=== PATIENT | male | born 1970 | race American Indian/Alaskan Native ===

== ENCOUNTER 2017-08-17 17:39 | Emergency (ER) | payer BC ==
[2017-08-17] MEDS ORDERED: ZOFRAN IV ONE (19:53)
--- NOTE | 2017-08-17 19:54 | Emergency Department Report ---
History of Present Illness - General Chief Complaint: Pain General Stated Complaint: ABD PAIN Time Seen by Provider: 08/17/17 19:26 Source: patient, EMS Mode of arrival: Stretcher Limitations: No Limitations - Related Data Previous Rx's Medication Instructions Recorded Last Taken Type Blood Sugar Diagnostic, Drum 1 each MC BID #1 strip 04/16/17 Unknown Rx [Accu-Chek Compact Plus Strips] Insulin Aspart [NovoLOG Flexpen] 1 dose SQ AC #1 pen 04/16/17 Unknown Rx Insulin Detemir [Levemir] 10 units SUB-Q Q12H #100 units 04/16/17 Unknown Rx Lancets 1 each MC BID 30 Days 04/16/17 Unknown Rx Syringe and Needle,Insulin,1Ml 1 each MC BID #60 disp.syrin 04/16/17 Unknown Rx [Insulin Syringe/Needle 1 ML] oxyCODONE /ACETAMINOPHEN [Percocet 1 tab PO Q6H PRN #30 tablet 04/16/17 Unknown Rx 5/325 mg] Allergies Allergy/AdvReac Type Severity Reaction Status Date / Time pineapple Allergy Itching Verified 08/17/17 18:39 ED Review of Systems ROS: Stated complaint: ABD PAIN Other details as noted in HPI ED Past Medical Hx - Past Medical History Previous Medical History?: Yes Hx Congestive Heart Failure: No Hx Diabetes: Yes Hx Asthma: No Hx COPD: No Additional medical history: Hernia - Surgical History Past Surgical History?: Yes Additional Surgical History: 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 - Social History Smoking Status: Current Every Day Smoker Substance Use Type: None - Medications Home Medications: Home Medications Medication Instructions Recorded Confirmed Last Taken Type Blood Sugar Diagnostic, Drum 1 each MC BID #1 strip 04/16/17 Unknown Rx [Accu-Chek Compact Plus Strips] Insulin Aspart [NovoLOG Flexpen] 1 dose SQ AC #1 pen 04/16/17 Unknown Rx Insulin Detemir [Levemir] 10 units SUB-Q Q12H #100 units 04/16/17 Unknown Rx Lancets 1 each MC BID 30 Days 04/16/17 Unknown Rx Syringe and Needle,Insulin,1Ml 1 each MC BID #60 disp.syrin 04/16/17 Unknown Rx [Insulin Syringe/Needle 1 ML] oxyCODONE /ACETAMINOPHEN [Percocet 1 tab PO Q6H PRN #30 tablet 04/16/17 Unknown Rx 5/325 mg] ED Physical Exam - General Limitations: No Limitations ED Course Vital Signs 08/17/17 08/17/17 18:34 18:39 Temperature 98.7 F 98.7 F Pulse Rate 62 62 Respiratory 16 16 Rate Blood Pressure 137/74 Blood Pressure 137/74 [Right] O2 Sat by Pulse 98 100 Oximetry Critical care attestation.: If time is entered above; I have spent that time in minutes in the direct care of this critically ill patient, excluding procedure time. ED Disposition Condition: Stable Referrals: PRIMARY CARE, [Primary Care Provider] - 3-5 Days
[2017-08-17] MEDS ORDERED: SUBLIMAZE IV ONE (20:00)
--- NOTE | 2017-08-17 20:30 | Emergency Department Report ---
ED Abdominal Pain HPI - General Chief Complaint: Pain General Stated Complaint: ABD PAIN Time Seen by Provider: 08/17/17 19:26 Source: patient, EMS Mode of arrival: Stretcher Limitations: No Limitations - History of Present Illness Initial Comments: 47-year-old male with past medical history of diabetes mellitus and hypertension, as is here with complaints of pain in his right inguinal region. He was diagnosed with right inguinal hernia in April of this year. Certainly was unable to be done at that time because he had uncontrolled diabetes mellitus. He was lifting some heavy objects at work today and developed right inguinal pain. There is associated nausea and vomiting, no diarrhea, no fever. MD Complaint: abdominal pain (right inguinal region) -: Gradual Location: RLQ Radiation: none Migration to: periumbilical Severity: moderate Severity scale (0 -10): 6 Quality: stabbing, sharp Consistency: intermittent Improves With: nothing Worsens With: movement Context: other (patient was lifting heavy object at work today. These actions triggered his right inguinal pain) Associated Symptoms: nausea, vomiting. denies: diarrhea, chills, constipation, dysuria, hematemesis, hematochezia, melena, hematuria, anorexia, syncope - Related Data Previous Rx's Medication Instructions Recorded Last Taken Type Blood Sugar Diagnostic, Drum 1 each MC BID #1 strip 04/16/17 Unknown Rx [Accu-Chek Compact Plus Strips] Insulin Aspart [NovoLOG Flexpen] 1 dose SQ AC #1 pen 04/16/17 Unknown Rx Insulin Detemir [Levemir] 10 units SUB-Q Q12H #100 units 04/16/17 Unknown Rx Lancets 1 each MC BID 30 Days 04/16/17 Unknown Rx Syringe and Needle,Insulin,1Ml 1 each MC BID #60 disp.syrin 04/16/17 Unknown Rx [Insulin Syringe/Needle 1 ML] oxyCODONE /ACETAMINOPHEN [Percocet 1 tab PO Q6H PRN #30 tablet 04/16/17 Unknown Rx 5/325 mg] Hyoscyamine Subl [Levsin Sl 0.125 0.25 mg SL Q6HR PRN #30 tab 08/18/17 Unknown Rx TAB] Ibuprofen [Motrin 800 MG tab] 800 mg PO Q8HR PRN #30 tablet 08/18/17 Unknown Rx Ondansetron [Zofran TAB] 8 mg PO Q8HR PRN #20 tablet 08/18/17 Unknown Rx Allergies Allergy/AdvReac Type Severity Reaction Status Date / Time pineapple Allergy Itching Verified 08/17/17 18:39 ED Review of Systems ROS: Stated complaint: ABD PAIN Other details as noted in HPI Comment: All other systems reviewed and negative Constitutional: weakness. denies: chills, diaphoresis, fever, malaise Eyes: denies: eye pain, eye discharge, vision change ENT: denies: throat pain, dental pain, hearing loss, epistaxis Respiratory: shortness of breath. denies: cough, orthopnea, SOB with exertion, SOB at rest Cardiovascular: denies: chest pain, palpitations, dyspnea on exertion, orthopnea , edema, syncope, paroxysmal nocturnal dyspnea Endocrine: see HPI Gastrointestinal: abdominal pain (right inguinal region), nausea, vomiting, constipation. denies: diarrhea, hematemesis Genitourinary: denies: urgency, dysuria, frequency, hematuria, discharge Musculoskeletal: denies: back pain, joint swelling, arthralgia Skin: denies: rash, change in color, change in hair/nails, pruritus Neurological: weakness. 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 - Social History Smoking Status: Current Every Day Smoker Substance Use Type: None - Medications Home Medications: Home Medications Medication Instructions Recorded Confirmed Last Taken Type Blood Sugar Diagnostic, Drum 1 each MC BID #1 strip 04/16/17 Unknown Rx [Accu-Chek Compact Plus Strips] Insulin Aspart [NovoLOG Flexpen] 1 dose SQ AC #1 pen 04/16/17 Unknown Rx Insulin Detemir [Levemir] 10 units SUB-Q Q12H #100 units 04/16/17 Unknown Rx Lancets 1 each MC BID 30 Days 04/16/17 Unknown Rx Syringe and Needle,Insulin,1Ml 1 each MC BID #60 disp.syrin 04/16/17 Unknown Rx [Insulin Syringe/Needle 1 ML] oxyCODONE /ACETAMINOPHEN [Percocet 1 tab PO Q6H PRN #30 tablet 04/16/17 Unknown Rx 5/325 mg] Hyoscyamine Subl [Levsin Sl 0.125 0.25 mg SL Q6HR PRN #30 tab 08/18/17 Unknown Rx TAB] Ibuprofen [Motrin 800 MG tab] 800 mg PO Q8HR PRN #30 tablet 08/18/17 Unknown Rx Ondansetron [Zofran TAB] 8 mg PO Q8HR PRN #20 tablet 08/18/17 Unknown Rx ED Physical Exam - General Limitations: No Limitations General appearance: alert, anxious, in distress ([id number]) - Head Head exam: Present: atraumatic, normocephalic - Eye Eye exam: Present: normal appearance, PERRL, EOMI. Absent: scleral icterus, conjunctival injection, nystagmus Pupils: Absent: normal accommodation - ENT ENT exam: Present: normal exam, mucous membranes moist. Absent: TM's normal bilaterally - Neck Neck exam: Present: normal inspection, full ROM. Absent: tenderness, meningismus, lymphadenopathy - Respiratory Respiratory exam: Present: normal lung sounds bilaterally. Absent: respiratory distress, wheezes, rales, rhonchi, chest wall tenderness, accessory muscle use, decreased breath sounds, prolonged expiratory - Cardiovascular Cardiovascular Exam: Present: regular rate, normal rhythm, normal heart sounds. Absent: bradycardia, tachycardia, systolic murmur, diastolic murmur - GI/Abdominal GI/Abdominal exam: Present: soft, distended (obese abdomen), guarding (guarding in right lower quadrant, right inguinal region), hypoactive bowel sounds. Absent: normal bowel sounds, diminished bowel sounds, hyperactive bowel sounds - Rectal Rectal exam: Present: deferred - Extremities Exam Extremities exam: Present: normal inspection, full ROM, normal capillary refill. Absent: tenderness, pedal edema, joint swelling - Back Exam Back exam: Present: normal inspection, full ROM. Absent: tenderness, CVA tenderness (R), CVA tenderness (L), muscle spasm - Neurological Exam Neurological exam: Present: alert, CN II-XII intact, normal gait, motor sensory deficit ED Course Vital Signs 08/17/17 08/17/17 08/17/17 18:34 18:39 20:35 Temperature 98.7 F 98.7 F Pulse Rate 62 62 63 Respiratory 16 16 16 Rate Blood Pressure 137/74 Blood Pressure 137/74 122/65 [Right] O2 Sat by Pulse 98 100 97 Oximetry - Reevaluation(s) Reevaluation #1: 08/18/17 01:28 Present for much better ED Medical Decision Making - Lab Data Result diagrams: 08/17/17 20:03 08/17/17 20:03 Lab Results 08/17/17 08/17/17 08/17/17 Range/Units 20:03 20:03 20:20 WBC 11.5 H (4.5-11.0) K/mm3 RBC 4.34 (3.65-5.03) M/mm3 Hgb 13.4 (11.8-15.2) gm/dl Hct 40.9 (35.5-45.6) % MCV 94 (84-94) fl MCH 31 (28-32) pg MCHC 33 (32-34) % RDW 13.2 (13.2-15.2) % Plt Count 201 (140-440) K/mm3 Lymph % (Auto) 14.8 (13.4-35.0) % Story % (Auto) 5.2 (0.0-7.3) % Eos % (Auto) 0.3 (0.0-4.3) % Baso % (Auto) 0.3 (0.0-1.8) % Lymph # 1.7 (1.2-5.4) K/mm3 Story # 0.6 (0.0-0.8) K/mm3 Eos # 0.0 (0.0-0.4) K/mm3 Baso # 0.0 (0.0-0.1) K/mm3 Seg Neutrophils % 79.4 H (40.0-70.0) % Seg Neutrophils # 9.1 H (1.8-7.7) K/mm3 Sodium 138 (137-145) mmol/L Potassium 4.1 (3.6-5.0) mmol/L Chloride 101.6 (98-107) mmol/L Carbon Dioxide 26 (22-30) mmol/L Anion Gap 15 mmol/L BUN 12 (9-20) mg/dL Creatinine 1.1 (0.8-1.5) mg/dL Estimated GFR > 60 ml/min BUN/Creatinine Ratio 11 % Glucose 152 H (75-100) mg/dL Calcium 8.9 (8.4-10.2) mg/dL Total Bilirubin 0.20 (0.1-1.2) mg/dL AST 23 (5-40) units/L ALT 37 (7-56) units/L Alkaline Phosphatase 88 (35-129) units/L Total Protein 6.5 (6.3-8.2) g/dL Albumin 3.9 (3.9-5) g/dL Albumin/Globulin Ratio 1.5 % Lipase 39 (13-60) units/L Urine Color Yellow (Yellow) Urine Turbidity Clear (Clear) Urine pH 5.0 (5.0-7.0) Ur Specific [place] 1.028 (1.003-1.030) Urine Protein <15 mg/dl (Negative) mg/dL Urine Glucose (UA) 50 (Negative) mg/dL Urine Ketones 20 (Negative) mg/dL Urine Blood Sm (Negative) Urine Nitrite Neg (Negative) Urine Bilirubin Neg (Negative) Urine Urobilinogen 2.0 (<2.0) mg/dL Ur Leukocyte Esterase Tr (Negative) Urine WBC (Auto) 7.0 H (0.0-6.0) /HPF Urine RBC (Auto) 9.0 (0.0-6.0) /HPF U Epithel Cells (Auto) 1.0 (0-13.0) /HPF Urine Mucus 1+ /HPF - Radiology Data Radiology results: report reviewed, image reviewed Critical Care Time: No Critical care attestation.: If time is entered above; I have spent that time in minutes in the direct care of this critically ill patient, excluding procedure time. ED Disposition Clinical Impression: Bilateral inguinal hernia Disposition: TO HOME OR SELFCARE Is pt being admited?: No Does the pt Need Aspirin: No Condition: Stable Instructions: Inguinal Hernia (ED) Additional Instructions: Avoid lifting heavy weights, follow with the surgeon as outpatient. Return back to the emergency room if your problem progressively gets worse Prescriptions: Hyoscyamine Subl [Levsin Sl 0.125 TAB] 0.25 mg SL Q6HR PRN #30 tab PRN Reason: Pain Ibuprofen [Motrin 800 MG tab] 800 mg PO Q8HR PRN #30 tablet PRN Reason: Pain Ondansetron [Zofran TAB] 8 mg PO Q8HR PRN #20 tablet PRN Reason: Nausea Referrals: PRIMARY CARE, [Primary Care Provider] - 3-5 Days Time of Disposition: 01:36
[2017-08-17 20:33] LABS: Basophils % (Auto) 0.3 % (0.0-1.8); Eosinophils % (Auto) 0.3 % (0.0-4.3); Hematocrit 40.9 % (35.5-45.6); Hemoglobin 13.4 gm/dl (11.8-15.2); Mean Corpuscular HGB Conc 33 % (32-34); Mean Corpuscular Hemoglobin 31 pg (28-32); Mean Corpuscular Volume 94 fl (84-94); Platelet Count 201 K/mm3 (140-440); Red Blood Count 4.34 M/mm3 (3.65-5.03); Red Cell Distribution Width 13.2 % (13.2-15.2); White Blood Count 11.5 K/mm3 (4.5-11.0)
[2017-08-17 20:41] LABS: Alanine Aminotransferase 37 units/L (7-56); Albumin 3.9 g/dL (3.9-5); Albumin/Globulin Ratio 1.5 %; Alkaline Phosphatase 88 units/L (35-129); Anion Gap 15 mmol/L; BUN/Creatinine Ratio 11; Blood Urea Nitrogen 12 mg/dL (9-20); Calcium 8.9 mg/dL (8.4-10.2); Carbon Dioxide 26 mmol/L (22-30); Chloride 101.6 mmol/L (98-107); Glucose 152 mg/dL (75-100); Lipase 39 units/L (13-60); Potassium 4.1 mmol/L (3.6-5.0); Sodium 138 mmol/L (137-145); Total Protein 6.5 g/dL (6.3-8.2)
[2017-08-17 20:56] LABS: Bilirubin,Urine NEG (Negative); Blood,Urine SM (Negative); Ketones,Urine 20 mg/dL (Negative); Leukocyte Esterase,Urine TR (Negative); Mucus,Urine 1+ /HPF; Nitrite,Urine NEG (Negative); Protein,Urine <15 mg/dL mg/dL (Negative)
--- NOTE | 2017-08-17 22:47 | Cat Scan Report ---
FINAL REPORT PROCEDURE: CT ABDOMEN PELVIS W CON TECHNIQUE: Computerized axial tomography of the abdomen and pelvis was performed after the IV injection of iodinated nonionic contrast. HISTORY: RLQ abdominal pain, hx of inguinal hernia COMPARISON: 04/15/2017 FINDINGS: Visualized lower thorax: No acute abnormality Liver: Fatty infiltration of the liver. Spleen: Normal size and attenuation. Gallbladder and biliary system: Normal. Pancreas: Normal. Adrenals: Normal. Kidneys: Stable left renal cyst, measuring up to 3 centimeters. No hydronephrosis bilaterally. GI tract: There is again visualized herniation of a short segment of proximal sigmoid colon within left inguinal hernia. No obstruction or acute inflammation. Appendix is visualized and does not appear inflamed. Lymph nodes and mesentery: Normal. Vasculature: Normal. Bladder: There is herniation of the right anterior lateral wall of the bladder into a right inguinal hernia, as seen previously. Reproductive organs: Bilateral inguinal hernias. Peritoneum: No free fluid. Musculoskeletal structures: There are degenerative disc changes of the thoracolumbar spine. Other: None. IMPRESSION: There are again visualized bilateral inguinal hernias. The right anterior lateral wall of the urinary bladder is herniated into the right inguinal hernia. There is a short segment of proximal sigmoid colon herniated into the left inguinal hernia, without obstruction or inflammation Fatty infiltration of the liver.
[2017-08-18 01:52] VITALS: BP 119/76
== END 2017-08-18 01:45 | disposition home or self-care (01) ==
LOC: ED 17:39
DX: K40.90 Unilateral inguinal hernia, without obstruction or gangrene, not specified as recurrent (principal); E11.9 Type 2 diabetes mellitus without complications; F17.200 Nicotine dependence, unspecified, uncomplicated
CPT/HCPCS: 36415; 74177; 80053; 81001; 83690; 85025; 96374; 96375; 99284; J2405; J3010; Q9967

== ENCOUNTER 2017-10-15 06:06 | Day surgery (SDC) | payer BC ==
[2017-10-15] MEDS ORDERED: NACL BACTERIOSTATIC INFILTRATI ONE (06:36)
[2017-10-15] MEDS ORDERED: VERSED IV NR (07:00)
[2017-10-15] MEDS ORDERED: NACL 0.9% 1000 ML 1,000 ML IV SCH (07:00)
[2017-10-15] MEDS ORDERED: PEPCID PO NR (07:00)
--- NOTE | 2017-10-15 07:11 | Anesthesia Day of Surgery ---
Anesthesia Day of Surgery - Day of Surgery Patient Examined: Yes Patient H&P Reviewed: Yes Patient is NPO: Yes
--- NOTE | 2017-10-15 07:11 | Anesthesia Consultation ---
Anesthesia Consult and Med Hx Date of service: 10/15/17 - Airway Anesthetic Teeth Evaluation: Good ROM Head & Neck: Adequate Mental/Hyoid Distance: Adequate Mallampati Class: Class II Intubation Access Assessment: Probably Good - Pulmonary Exam CTA: Yes - Cardiac Exam Cardiac Exam: RRR - Pre-Operative Health Status ASA Pre-Surgery Classification: ASA3 Proposed Anesthetic Plan: General - Pulmonary Hx Smoking: Yes (CURRENT 4 CIGARETTS/DAY, SINCE 1990) Hx Asthma: No COPD: No Hx Pneumonia: No - Central Nervous System Hx Psychiatric Problems: No - Endocrine Hx End Stage Renal Disease: No Hx Insulin Dependent Diabetes: Yes - Other Systems Hx Alcohol Use: Yes (OCCAS BEER) Hx Substance Use: No Hx Cancer: No
[2017-10-15] MEDS ORDERED: SUBLIMAZE ONE (07:22)
[2017-10-15] MEDS ORDERED: ZEMURON IV ONE (07:22)
[2017-10-15] MEDS ORDERED: DIPRIVAN 10 MG/ML IV ONE (07:22)
[2017-10-15] MEDS ORDERED: XYLOCAINE MPF 2% ONE (07:22)
[2017-10-15] MEDS ORDERED: PERCOCET 5/325 PO PRN (07:30)
[2017-10-15] MEDS ORDERED: MARCAINE 0.25% INFILTRATI ONE ×2 (07:51→08:13)
[2017-10-15] MEDS ORDERED: ANCEF/STERILE WATER 2 GM/20 ML IV NR (08:00)
[2017-10-15] MEDS ORDERED: ZOFRAN IV PRN (08:00)
[2017-10-15] MEDS ORDERED: NACL 0.9% IR ONE (08:13)
[2017-10-15] MEDS ORDERED: NEO SYNEPHRINE/NS Syringe(OR USE) IV ONE (08:46)
[2017-10-15] MEDS ORDERED: ePHEDrine SULFATE ONE (09:44)
[2017-10-15] MEDS ORDERED: DILAUDID ONE (09:56)
[2017-10-15] MEDS ORDERED: ROBINUL ONE (11:13)
[2017-10-15] MEDS ORDERED: NEOSTIGMINE ONE (11:13)
[2017-10-15] MEDS ORDERED: ZOFRAN ONE (11:13)
[2017-10-15] MEDS ORDERED: BREVIBLOC IV ONE (11:20)
--- NOTE | 2017-10-15 11:34 | Short Stay Summary ---
Short Stay Documentation Date of service: 10/15/17 Narrative H&P: 47-year-old male with bilateral inguinal hernias was evaluated in the office. After obtaining medical and cardiology clearance, the patient was scheduled for a laparoscopic bilateral inguinal hernia repair with mesh. He presents today for the procedure. He has no complaints. - History Principal diagnosis: bilateral inguinal hernias, reducible H&P: obtained from office - Allergies and Medications Current Medications: Allergies pineapple Allergy (Verified 10/09/17 10:43) Itching Home Medications Medication Instructions Recorded Confirmed Last Taken Type Insulin Detemir [Levemir] 20 units SUB-Q Q12H 10/15/17 10/15/17 10/14/17 10:00 History 20 UNITS Active Medications Cefazolin Sodium (Ancef/Sterile Water 2 Gm/20 Ml) 2 gm IV PREOP NR Stop: 10/15/17 16:00 Famotidine (Pepcid) 20 mg PO PREOP NR Stop: 10/15/17 23:45 Last Admin: 10/15/17 07:01 Dose: 20 mg Sodium Chloride (Nacl 0.9% 1000 Ml) 1,000 mls @ 100 mls/hr IV DIRECT DEVONTE Last Admin: 10/15/17 06:58 Dose: 100 mls/hr Midazolam HCl (Versed) 2 mg IV PREOP NR Stop: 10/15/17 23:59 Last Admin: 10/15/17 07:11 Dose: 2 mg Morphine Sulfate (Morphine) 2 mg IV Q10MIN PRN PRN Reason: Pain, Moderate (4-6) Stop: 10/15/17 15:00 Ondansetron HCl (Zofran) 4 mg IV ONCE PRN PRN Reason: Nausea And Vomiting Oxycodone/Acetaminophen (Percocet 5/325) 1 tab PO ONCE PRN PRN Reason: Pain, Moderate (4-6) - Brief post op/procedure progress note Date of procedure: 10/15/17 Pre-op diagnosis: bilateral inguinal hernias, reducible Post-op diagnosis: same Procedure: laparoscopic bilateral inguinal hernia repair with mesh Anesthesia: GETA Findings: Bilateral direct inguinal hernias Surgeon: UMU VAZQUEZ Estimated blood loss: minimal Pathology: none Condition: stable - Hospital course Hospital course: After the scheduled procedure, the patient was recovered in the PACU. After criteria was met, he was discharged home in stable condition. - Disposition Condition at discharge: Good Disposition: DC-01 TO HOME OR SELFCARE - Discharge Diagnoses (1) Bilateral inguinal hernia Status: Acute Qualifiers: Obstruction and gangrene presence: without obstruction or gangrene Recurrence: non-recurrent Qualified Code(s): K40.20 - Bilateral inguinal hernia, without obstruction or gangrene, not specified as recurrent Short Stay Discharge Plan Activity: other (no lifting more than 15 pounds for the next 4-6 weeks, do not drive if taking narcotic pain medication) Diet: diabetic Wound: open to air Additional Instructions: Call surgeon's office if you have fever greater than 100.4, pain not controlled with prescription pain medications, redness around or pus draining from incisions Follow up with: DUNIA MORENO MD [Primary Care Provider] - 7 Days UMU VAZQUEZ DO [Staff Physician] - 14 Days Prescriptions: oxyCODONE /ACETAMINOPHEN [Percocet 5/325 mg] 1 tab PO ONCE PRN #20 tablet PRN Reason: Pain, Moderate (4-6)
[2017-10-15] MEDS: MORPHINE IV PRN ×3 (11:35→11:55)
--- NOTE | 2017-10-15 11:49 | Operative Report ---
Operative Report Operative Report: Date of operation: 10/15/2017 Preoperative diagnosis: Bilateral reducible inguinal hernias Postoperative diagnosis: Same as above Procedure performed: Laparoscopic bilateral inguinal hernia repair with mesh Surgeon: Naif Girard DO Anesthesia: Gen. endotracheal anesthesia Findings: There were bilateral direct inguinal hernias Estimated blood loss: Less than 10 mL Complications: None Disposition: Stable to PACU HPI an indication: Patient is a 47-year-old male who presented to the emergency room with complaints of pain in his right groin. A CAT scan showed bilateral inguinal hernias containing bowel. The patient was evaluated in the surgery office and set up for laparoscopic bilateral inguinal hernia repair mesh. Medical and cardiology clearance were obtained prior to surgery. All risks of surgery were discussed with the patient, all questions answered, and consent was signed and placed on the chart. Procedure in detail: The patient was identified in the preoperative area, taken back to the operating room and placed on the operating table in supine position. After anesthesia was induced a De La Vega catheter was sterilely placed by the circulating nurse. Both arms were tucked at the side with the appropriate padding. The abdomen was then prepped and draped in usual sterile fashion and a timeout was performed. Local anesthetic, 0.25% Marcaine was injected into all skin incision sites. A horizontal incision was made to the left of the umbilicus using an 11 blade. Dissection was carried down through the skin and subcutaneous tissue using Bovie electrocautery until the anterior fascia was encountered. This was opened with the Bovie until muscle was visualized. The muscle was gently split in the direction of its fibers and the preperitoneal space entered. The preperitoneal space was bluntly developed with a gloved finger. Then the Spacemaker balloon was inserted into this layer and gently guided towards the pubic tubercle. Once in the correct position, the Spacemaker balloon was inflated under direct visualization using the laparoscopic camera. Once the space was dissected, the balloon was deflated and removed. A 11 mm balloon trocar was then placed into this layer and the space insufflated to 15 mmHg. 2- 5 mm trocars were then placed under direct visualization in the midline, the first 3 fingerbreadths below the umbilicus and the second 3 fingerbreadths below that. I first turned my attention to the right side. Using the laparoscopic Kittner dissectors, the lateral space was developed. I then turned my attention medially and cleared the pubic tubercle of overlying fat and tissue. The cord was identified and the surrounding fat, peritoneum, and cremasteric muscles were gently from the cord structures. The patient had a large direct hernia on this side. Once the peritoneum was completely reduced and the cord structures dissected free from surrounding tissue, I then turned my attention to the left side. Hemostasis was ensured during the entirety of the dissection. The hernia repair on the left was performed in the same manner as on the right side. There was a direct hernia defect on the left side as well. Once the dissection was complete on both sides, a large right Bard 3-D max mesh was introduced into the preperitoneal space. It was positioned appropriately and covered all potential hernia spaces. It was tacked to the pubic tubercle and to the lateral abdominal wall using the pro-tack. Then, a large left Bard 3-D max mesh was introduced into the preperitoneal space and positioned similarly to the right, ensuring that it covered all potential hernia spaces. The mesh was tacked to the pubic tubercle using the pro-tack. Hemostasis was once again ensured. The preperitoneal space was then desufflated slowly under direct visualization and the mesh was ensured to lay flat bilaterally. The trocars were then removed. The fascia of the umbilical port was closed using figure of 8, 0 Vicryl stitches. All skin incisions were closed with 4-0 Monocryl subcuticular stitches and skin glue. At the end of the case, all sponge, instrument, sharp counts were correct 2. The patient's scrotum was palpated, there were 2 testicles present. Residual scrotal air was decompressed. The De La Vega catheter was removed. The patient was awoken from anesthesia, extubated, and he was taken to PACU in stable condition.
[2017-10-15] MEDS ORDERED: TORADOL IV NR (13:00)
[2017-10-15] MEDS ORDERED: DILAUDID IV ONE (14:00)
--- NOTE | 2017-10-15 15:21 | Post Anesthesia Evaluation ---
- Post Anesthesia Evaluation Patient Participated: Yes Airway Patent: Yes Stable Respiratory Function: Yes Nausea/Vomiting: No Temp > 96.8F: Yes Pain Manageable: Yes Adequeate Hydration: Yes Anesthesia Complications: No Block Receding Appropriately: Not Applicable Patient on Ventilator: No
[2017-10-15 15:30] VITALS: BP 116/77
== END 2017-10-15 15:39 | disposition home or self-care (01) ==
LOC: OR 06:06
PROVIDERS: ATTEND Surgery
DX: K40.20 Bilateral inguinal hernia, without obstruction or gangrene, not specified as recurrent (principal); F17.210 Nicotine dependence, cigarettes, uncomplicated; M19.90 Unspecified osteoarthritis, unspecified site; E11.9 Type 2 diabetes mellitus without complications; Z79.4 Long term (current) use of insulin; Z91.018 Allergy to other foods; Z79.899 Other long term (current) drug therapy
CPT/HCPCS: 49650; 82962; C1726; C1781; J0690; J1170; J1885; J2250; J2270; J2370; J2405; J2704; J2710; J3010; J7030; J1815

== ENCOUNTER 2019-11-26 10:42 | Inpatient (IN) | payer BC, OTHER ==
[2019-11-26 12:18] LABS: Bilirubin,Urine NEG (Negative); Blood,Urine NEG (Negative); Color,Urine Yellow (Yellow); Protein,Urine <15 mg/dL mg/dL (Negative); Urobilinogen,Urine < 2.0 mg/dL (<2.0)
[2019-11-26 12:30] LABS: Basophils # (Auto) 0.1 K/mm3 (0.0-0.1); Basophils % (Auto) 0.7 % (0.0-1.8); Eosinophils % (Auto) 0.4 % (0.0-4.3); Hematocrit 46.2 % (35.5-45.6); Hemoglobin 15.8 gm/dl (11.8-15.2); Lymphocytes # (Auto) 1.1 K/mm3 (1.2-5.4); Lymphocytes % (Auto) 9.9 % (13.4-35.0); Mean Corpuscular HGB Conc 34 % (32-34); Mean Corpuscular Volume 96 fl (84-94); Monocytes # (Auto) 0.6 K/mm3 (0.0-0.8); Monocytes % (Auto) 5.4 % (0.0-7.3); Platelet Count 171 K/mm3 (140-440); Red Blood Count 4.82 M/mm3 (3.65-5.03)
[2019-11-26 12:48] LABS: BUN/Creatinine Ratio 17; Blood Urea Nitrogen 17 mg/dL (9-20); Calcium 9.6 mg/dL (8.4-10.2); Hemolysis Index 27
[2019-11-26] MEDS ORDERED: SODIUM CHLORIDE 0.9% 1000 ML 1,000 ML ONE (13:32)
[2019-11-26] MEDS ORDERED: ONDANSETRON 4 MG/2 ML INJ ONE (13:32)
[2019-11-26] MEDS ORDERED: SODIUM CHLORIDE 0.9% 1000 ML IV SOLN IV ONE (13:40)
[2019-11-26] MEDS ORDERED: ONDANSETRON 4 MG/2 ML INJ IV ONE (13:42)
--- NOTE | 2019-11-26 16:51 | Cat Scan Report ---
CT abdomen pelvis w con INDICATION / CLINICAL INFORMATION: Lower ABD Pain. TECHNIQUE: Axial CT imaging of abdomen and pelvis was obtained with IV contrast. Coronal and sagittal reformatte d imaging obtained and reviewed. All CT scans at this location are performed using CT dose reduction for ALARA by means of automated exposure control. COMPARISON: 08/17/2017 FINDINGS: CT abdomen with contrast demonstrates mild hepatic steatosis. There is focal low density lesion with peripheral enhancement in the medial segment of the left hepatic lobe adjacent to the falciform ligam ent measuring approximately 3.3 cm. I believe this was present on the prior study and is most likely a hemangioma. The remainder of the liver is unremarkable. Spleen, pancreas, kidneys, and adrenal glan ds are grossly unremarkable. Gallbladder is mildly distended but does not appear to be acutely inflam ed. No biliary dilatation. CT pelvis demonstrates several loops of small bowel in the right mid and lower abdomen with diffuse w all thickening. There is no abnormal dilatation of the small bowel, however. The proximal and mid sma ll bowel appear unremarkable. The overall appearance is nonspecific and could represent enteritis. A normal appendix is visualized. The remainder of the GI tract is normal. No pelvic mass, free fluid, o r adenopathy is noted. Urinary bladder is moderately distended. Visualized lung bases are clear. No significant osseous abnormality. IMPRESSION: 1. Abnormal loops of small bowel in the right side of the abdomen without abnormal dilatation. There is diffuse small bowel wall thickening in this region of the abdomen. The appearance is most likely r elated to enteritis, but clinical correlation is strongly recommended. 2. Hepatic steatosis. There is a benign-appearing hemangioma in the left lobe of the liver. Signer Name: Jasmyne Clements MD Signed: 11/26/2019 4:46 PM Workstation Name: [id number]
--- NOTE | 2019-11-26 17:05 | Emergency Department Report ---
ED General Adult HPI - General Chief complaint: Nausea/Vomiting/Diarrhea Stated complaint: VOMITING/HIGH GLUCOSE Time Seen by Provider: 11/26/19 14:46 Source: patient Mode of arrival: Ambulatory Limitations: No Limitations - History of Present Illness Initial comments: 49-year-old -[place] male with a known past medical history of diabetes and Arthritis presents emergency department complaining of onset of abdominal pain last night associated with several bouts of diarrhea and vomiting. States that when his blood sugar has been very elevated in the past he is developed gastroparesis symptoms and it feels like it may be similar. He reports no no fever, no hemoptysis no hematemesis no hematochezia. Reports no chest pain or palpitations but does have abdominal discomfort abdominal discomfort to his lower abdomen in the epigastric region. Quality: burning, stabbing, dull Consistency: constant Improves with: none Worsens with: none Treatments Prior to Arrival: none - Related Data Home Medications Medication Instructions Recorded Confirmed Last Taken Detemir (Nf) [Levemir (Nf)] 20 units SUB-Q Q12H 10/15/17 10/15/17 10/14/17 10:00 20 UNITS Previous Rx's Medication Instructions Recorded Last Taken Type oxyCODONE /ACETAMINOPHEN [Percocet 1 tab PO ONCE PRN #20 tablet 10/15/17 Unknown Rx 5/325 mg] Allergies Allergy/AdvReac Type Severity Reaction Status Date / Time pineapple Allergy Itching Verified 10/09/17 10:43 ED Review of Systems ROS: Stated complaint: VOMITING/HIGH GLUCOSE Other details as noted in HPI Comment: All other systems reviewed and negative ED Past Medical Hx - Past Medical History Previous Medical History?: Yes Hx Congestive Heart Failure: No Hx Diabetes: Yes (SINCE 2014) Hx Arthritis: Yes Hx Asthma: No Hx COPD: No Hx HIV: No Additional medical history: Hernia - Surgical History Past Surgical History?: Yes Additional Surgical History: 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 - Social History Smoking Status: Current Every Day Smoker Substance Use Type: None - Medications Home Medications: Home Medications Medication Instructions Recorded Confirmed Last Taken Type Detemir (Nf) [Levemir (Nf)] 20 units SUB-Q Q12H 10/15/17 10/15/17 10/14/17 10:00 History 20 UNITS oxyCODONE /ACETAMINOPHEN [Percocet 1 tab PO ONCE PRN #20 tablet 10/15/17 Unknown Rx 5/325 mg] ED Physical Exam - General Limitations: No Limitations General appearance: alert, in no apparent distress - Head Head exam: Present: atraumatic, normocephalic, normal inspection - Eye Eye exam: Present: normal appearance, PERRL, EOMI Pupils: Present: normal accommodation - ENT ENT exam: Present: normal exam, normal orophraynx, mucous membranes moist, TM's normal bilaterally, normal external ear exam (k) - Neck Neck exam: Present: normal inspection, full ROM - Respiratory Respiratory exam: Present: normal lung sounds bilaterally. Absent: respiratory distress - Cardiovascular Cardiovascular Exam: Present: regular rate, normal rhythm. Absent: systolic murmur, diastolic murmur, rubs, gallop - GI/Abdominal GI/Abdominal exam: Present: soft, tenderness (Diffuse tenderness), normal bowel sounds. Absent: guarding, rebound - Rectal Rectal exam: Present: deferred - Extremities Exam Extremities exam: Present: normal inspection - Back Exam Back exam: Present: normal inspection - Neurological Exam Neurological exam: Present: alert, oriented X3 - Psychiatric Psychiatric exam: Present: normal affect, normal mood - Skin Skin exam: Present: warm, dry, intact, normal color. Absent: rash ED Course Vital Signs 11/26/19 10:50 Temperature 97.9 F Pulse Rate 113 H Respiratory 16 Rate Blood Pressure 117/86 O2 Sat by Pulse 98 Oximetry - Consultations Consultation #2: 11/26/19 17:15 Case discussed with my attending Dr. Michelle Garg Case was reviewed plan is to admit for DKA Consultation #3: 11/26/19 17:15 Case was discussed with hospitalist Dr. Weinberg who will come evaluate the patient at bedside for admission ED Medical Decision Making - Lab Data Result diagrams: 11/26/19 11:58 11/26/19 11:58 - Radiology Data Radiology results: report reviewed [facility] [address] [place] [address] Cat Scan Report Signed Patient: MARLENA SCHROEDER MR#: [id number] : 1970 Acct:[id number] Age/Sex: 49 / M ADM Date: 11/26/19 Loc: ED Attending Dr: Ordering Physician: MINISTERIO JAY Date of Service: 11/26/19 Procedure(s): CT abdomen pelvis w con Accession Number(s): [id number] cc: MINISTERIO JAY CT abdomen pelvis w con INDICATION / CLINICAL INFORMATION: Lower ABD Pain. TECHNIQUE: Axial CT imaging of abdomen and pelvis was obtained with IV contrast. Coronal and sagittal reformatted imaging obtained and reviewed. All CT scans at this location are performed using CT d ose reduction for ALARA by means of automated exposure control. COMPARISON: 08/17/2017 FINDINGS: CT abdomen with contrast demonstrates mild hepatic steatosis. There is focal low density lesion with peripheral enhancement in the medial segment of the left hepatic lobe adjacent to the falciform ligament measuring approximately 3.3 cm. I believe this was present on the prior study and is most likely a hemangioma. The remainder of the liver is unremarkable. Spleen, pancreas, kidneys, and adrenal glands are grossly unremarkable. Gallbladder is mildly distended but does not appear to be acutely inflamed. No biliary dilatation. CT pelvis demonstrates several loops of small bowel in the right mid and lower abdomen with diffuse wall thickening. There is no abnormal dilatation of the small bowel, however. The proximal and mid small bowel appear unremarkable. The overall appearance is nonspecific and could represent enteritis. A normal appendix is visualized. The remainder of the GI tract is normal. No pelvic mass, free fluid, or adenopathy is noted. Urinary bladder is moderately distended. Visualized lung bases are clear. No significant osseous abnormality. IMPRESSION: 1. Abnormal loops of small bowel in the right side of the abdomen without abnormal dilatation. There is diffuse small bowel wall thickening in this region of the abdomen. The appearance is most likely related to enteritis, but clinical correlation is strongly recommended. 2. Hepatic steatosis. There is a benign-appearing hemangioma in the left lobe of the liver. Signer Name: Jasmyne Clements MD Signed: 11/26/2019 4:46 PM Workstation Name: [id number] Transcribed By: JR Dictated By: Jasmyne Clements MD Electronically Authenticated By: Jasmyne Clements MD Signed Date/Time: 11/26/196 DD/ 1640 TD/TT: - Medical Decision Making Mr. Schroeder is a 49-year-old -[place] male with diabetes presents to the emergency department with hypoglycemia symptoms concerning for DKA and gastroparesis. His differential diagnosis includes other metabolic causes of hypoglycemia such as HHS, worsened diabetes/compliance. Noncompliance, as for his abdominal pain differential diagnosis includes gastroenteritis, gastroparesis, ischemic bowel, perforation, obstructive process. We considered possible causes of DKA to include infection such as pancreatitis, UTI or pneumonia. Also consider iatrogenic causes idiopathic causes and substance abuse. Most likely at this time the etiology is due to medication compliance plan to treat the hyper glycemia evaluated for the potential etiologies. Critical care attestation.: If time is entered above; I have spent that time in minutes in the direct care of this critically ill patient, excluding procedure time. ED Disposition Clinical Impression: DKA (diabetic ketoacidoses), Abdominal pain, Gastroparesis Disposition: OP ADMIT IP TO THIS HOSP Is pt being admited?: Yes Does the pt Need Aspirin: No Condition: Stable Instructions: Diabetic Ketoacidosis (ED)
[2019-11-26] MEDS ORDERED: METOCLOPRAMIDE 10 MG/2 ML INJ IV STA (17:11)
[2019-11-26] MEDS ORDERED: diphenhydrAMINE 50 MG/ML VIAL IV STA (17:11)
[2019-11-26] MEDS ORDERED: ONDANSETRON 4 MG/2 ML INJ IV PRN (22:01)
[2019-11-26] MEDS ORDERED: HYDROmorphone 1 MG/1 ML INJ IV PRN (22:01)
[2019-11-26] MEDS ORDERED: MORPHINE 2 MG/1 ML INJ IV PRN (22:01)
[2019-11-26] MEDS ORDERED: ACETAMINOPHEN 325 MG TAB PO PRN (22:01)
[2019-11-26] MEDS ORDERED: INSULIN LISPRO 100 UNIT/ML SUB-Q ONE (22:04)
[2019-11-26] MEDS ORDERED: SODIUM CHLORIDE 0.9% 1000 ML 1,000 ML IV SCH (22:15)
[2019-11-27] MEDS: HEPARIN 5,000 UNIT/1 ML VIAL SUB-Q SCH ×3 (05:35→22:37)
[2019-11-27 10:10] LABS: Basophils % (Auto) 0.4 % (0.0-1.8); Eosinophils # (Auto) 0.1 K/mm3 (0.0-0.4); Eosinophils % (Auto) 1.2 % (0.0-4.3); Hematocrit 40.7 % (35.5-45.6); Lymphocytes # (Auto) 2.1 K/mm3 (1.2-5.4); Lymphocytes % (Auto) 27.6 % (13.4-35.0); Mean Corpuscular HGB Conc 34 % (32-34); Mean Corpuscular Volume 97 fl (84-94); Monocytes # (Auto) 0.6 K/mm3 (0.0-0.8); Monocytes % (Auto) 7.7 % (0.0-7.3); Platelet Count 145 K/mm3 (140-440); Red Blood Count 4.19 M/mm3 (3.65-5.03)
[2019-11-27 10:38] LABS: Alanine Aminotransferase 14 units/L (7-56); Albumin 3.6 g/dL (3.9-5); BUN/Creatinine Ratio 19; Blood Urea Nitrogen 15 mg/dL (9-20); Hemolysis Index 24
[2019-11-27] MEDS: INSULIN NPH/REGULAR 70/30 INJ SUB-Q SCH ×2 (11:33→18:00)
[2019-11-27] MEDS: INSULIN LISPRO 100 UNIT/ML SUB-Q SCH ×4 (12:02→22:37)
--- NOTE | 2019-11-27 12:19 | History and Physical Report ---
History of Present Illness Date of examination: 11/26/19 Date of admission: 11/26/19 22:01 Chief complaint: Vomiting for 1 day History of present illness: 49-year-old -[place] male with history of insulin-dependent diabetes comes in for nausea and vomiting of 1 day duration. Patient is on Levemir and Humalog but not taking it for the last 1 week. Patient has been noncompliant. Patient takes his Levemir sometimes but not the Humalog. Patient blood glucose levels have been high in the 300-400 range. No diarrhea. Vomiting 3-4 times. But doing better now. 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 Social History Smoking Status: Current Every Day Smoker Substance Use Type: None Family history HTN - Medications Home Medications: Home Medications Medication Instructions Recorded Confirmed Last Taken Type Detemir (Nf) [Levemir (Nf)] 20 units SUB-Q Q12H 10/15/17 10/15/17 10/14/17 10:00 History 20 UNITS oxyCODONE /ACETAMINOPHEN [Percocet 1 tab PO ONCE PRN #20 tablet 10/15/17 Unknown Rx 5/325 mg] Review of Systems ROS: Stated complaint: VOMITING/HIGH GLUCOSE Other details as noted in HPI Comment: All other systems reviewed and negative Medications and Allergies Allergies Allergy/AdvReac Type Severity Reaction Status Date / Time pineapple Allergy Itching Verified 10/09/17 10:43 Home Medications Medication Instructions Recorded Confirmed Last Taken Type Detemir (Nf) [Levemir (Nf)] 20 units SUB-Q Q12H 10/15/17 11/26/19 10/14/17 10:00 History 20 UNITS metFORMIN [Glucophage] 500 mg PO BID 11/26/19 11/26/19 Unknown History Active Meds: Active Medications Acetaminophen (Tylenol) 650 mg PO Q4H PRN PRN Reason: Pain MILD(1-3)/Fever >100.5/CEE Heparin Sodium (Porcine) (Heparin) 5,000 unit SUB-Q Q12HR DEVONTE Last Admin: 11/27/19 11:49 Dose: 5,000 unit Documented by: Hydromorphone HCl (Dilaudid) 0.5 mg IV Q3H PRN PRN Reason: Pain , Severe (7-10) Sodium Chloride (Nacl 0.9% 1000 Ml) 1,000 mls @ 100 mls/hr IV DIRECT DEVONTE Last Admin: 11/27/19 11:48 Dose: 100 mls/hr Documented by: Insulin Human Isoph/Insulin Regular (Humulin 70/30) 20 unit SUB-Q BIDDIAB [facility] Last Admin: 11/27/19 11:33 Dose: Not Given Documented by: Insulin Human Lispro (Humalog) 0 unit SUB-Q Q4HR [facility]; Protocol Stop: 12/03/19 23:55 Last Admin: 11/27/19 12:02 Dose: 8 unit Documented by: Morphine Sulfate (Morphine) 2 mg IV Q4H PRN PRN Reason: Pain, Moderate (4-6) Ondansetron HCl (Zofran) 4 mg IV Q8H PRN PRN Reason: Nausea And Vomiting Sodium Chloride (Sodium Chloride Flush Syringe 10 Ml) 10 ml IV BID [facility] Last Admin: 11/27/19 11:49 Dose: 10 ml Documented by: Sodium Chloride (Sodium Chloride Flush Syringe 10 Ml) 10 ml IV PRN PRN PRN Reason: LINE FLUSH Exam - Constitutional Vitals: Temp Pulse Resp BP Pulse Ox 98.5 F 91 H 18 110/73 96 11/27/19 10:49 11/27/19 10:49 11/27/19 10:49 11/27/19 10:49 11/27/19 10:49 General appearance: Present: no acute distress, well-nourished - EENT Eyes: Present: PERRL ENT: hearing intact, clear oral mucosa, other (Dry mucous membranes) - Neck Neck: Present: supple, normal ROM - Respiratory Respiratory effort: normal Respiratory: bilateral: CTA - Cardiovascular Heart rate: 80 Rhythm: regular Heart Sounds: Present: S1 & S2. Absent: rub, click - Extremities Extremities: no ischemia, pulses intact, pulses symmetrical, No edema Peripheral Pulses: within normal limits - Abdominal General gastrointestinal: Present: soft, non-tender, non-distended, normal bowel sounds Male genitourinary: Present: normal - Integumentary Integumentary: Present: clear, warm, dry - Musculoskeletal Musculoskeletal: gait normal, strength equal bilaterally - Psychiatric Psychiatric: appropriate mood/affect, intact judgment & insight - Neurologic Neurologic: CNII-XII intact, moves all extremities - Allied Health Allied health notes reviewed: nursing, case management VLAD score - Vlad Score Age > 65: (0) No Aspirin use within the Past 7 Days: (0) No 3 or more CAD Risk Factors: (0) No 2 or more Angina events in past 24 hrs: (0) No Known CAD with more than 50% Stenosis: (0) No Elevated Cardiac Markers: (0) No ST Deviation Greater than 0.5mm: (0) No VLAD Score: 0 Results - Labs CBC & Chem 7: 11/27/19 05:22 11/27/19 05:22 Labs: Laboratory Last Values WBC 7.6 K/mm3 (4.5-11.0) 11/27/19 05:22 RBC 4.19 M/mm3 (3.65-5.03) 11/27/19 05:22 Hgb 14.0 gm/dl (11.8-15.2) 11/27/19 05:22 Hct 40.7 % (35.5-45.6) 11/27/19 05:22 MCV 97 fl (84-94) H 11/27/19 05:22 MCH 33 pg (28-32) H 11/27/19 05:22 MCHC 34 % (32-34) 11/27/19 05:22 RDW 14.0 % (13.2-15.2) 11/27/19 05:22 Plt Count 145 K/mm3 (140-440) 11/27/19 05:22 Lymph % (Auto) 27.6 % (13.4-35.0) 11/27/19 05:22 [place] % (Auto) 7.7 % (0.0-7.3) H 11/27/19 05:22 Eos % (Auto) 1.2 % (0.0-4.3) 11/27/19 05:22 Baso % (Auto) 0.4 % (0.0-1.8) 11/27/19 05:22 Lymph # 2.1 K/mm3 (1.2-5.4) 11/27/19 05:22 [place] # 0.6 K/mm3 (0.0-0.8) 11/27/19 05:22 Eos # 0.1 K/mm3 (0.0-0.4) 11/27/19 05:22 Baso # 0.0 K/mm3 (0.0-0.1) 11/27/19 05:22 Seg Neutrophils % 63.1 % (40.0-70.0) 11/27/19 05:22 Seg Neutrophils # 4.8 K/mm3 (1.8-7.7) 11/27/19 05:22 VBG pH 7.306 (7.320-7.420) L 11/26/19 11:58 Sodium 135 mmol/L (137-145) L 11/27/19 05:22 Potassium 4.3 mmol/L (3.6-5.0) 11/27/19 05:22 Chloride 95.5 mmol/L (98-107) L 11/27/19 05:22 Carbon Dioxide 19 mmol/L (22-30) L 11/27/19 05:22 Anion Gap 25 mmol/L 11/27/19 05:22 BUN 15 mg/dL (9-20) 11/27/19 05:22 Creatinine 0.8 mg/dL (0.8-1.5) 11/27/19 05:22 Estimated GFR > 60 ml/min 11/27/19 05:22 BUN/Creatinine Ratio 19 % 11/27/19 05:22 Glucose 339 mg/dL (75-100) H 11/27/19 05:22 POC Glucose 414 (70-105) H 11/27/19 11:39 Hemoglobin A1c 16.7 % (4-6) H 11/26/19 22:32 Calcium 9.0 mg/dL (8.4-10.2) 11/27/19 05:22 Total Bilirubin 0.30 mg/dL (0.1-1.2) 11/27/19 05:22 AST 12 units/L (5-40) 11/27/19 05:22 ALT 14 units/L (7-56) 11/27/19 05:22 Alkaline Phosphatase 113 units/L (35-129) 11/27/19 05:22 Total Protein 6.4 g/dL (6.3-8.2) 11/27/19 05:22 Albumin 3.6 g/dL (3.9-5) L 11/27/19 05:22 Albumin/Globulin Ratio 1.3 % 11/27/19 05:22 Urine Color Yellow (Yellow) 11/26/19 11:05 Urine Turbidity Clear (Clear) 11/26/19 11:05 Urine pH 5.0 (5.0-7.0) 11/26/19 11:05 Ur Specific [place] 1.030 (1.003-1.030) 11/26/19 11:05 Urine Protein <15 mg/dl mg/dL (Negative) 11/26/19 11:05 Urine Glucose (UA) >=500 mg/dL (Negative) 11/26/19 11:05 Urine Ketones 20 mg/dL (Negative) 11/26/19 11:05 Urine Blood Neg (Negative) 11/26/19 11:05 Urine Nitrite Neg (Negative) 11/26/19 11:05 Urine Bilirubin Neg (Negative) 11/26/19 11:05 Urine Urobilinogen < 2.0 mg/dL (<2.0) 11/26/19 11:05 Ur Leukocyte Esterase Tr (Negative) 11/26/19 11:05 Urine WBC (Auto) 8.0 /HPF (0.0-6.0) H 11/26/19 11:05 Urine RBC (Auto) 4.0 /HPF (0.0-6.0) 11/26/19 11:05 U Epithel Cells (Auto) 3.0 /HPF (0-13.0) 11/26/19 11:05 Short CBC 11/26/19 11/27/19 Range/Units 11:58 05:22 WBC 11.2 H 7.6 (4.5-11.0) K/mm3 Hgb 15.8 H 14.0 (11.8-15.2) gm/dl Hct 46.2 H 40.7 (35.5-45.6) % Plt Count 171 145 (140-440) K/mm3 BMP 11/26/19 11/27/19 11:58 05:22 Sodium 134 L 135 L Potassium 5.3 H 4.3 Chloride 95.0 L 95.5 L Carbon Dioxide 18 L 19 L BUN 17 15 Creatinine 1.0 0.8 Glucose 415 H 339 H Calcium 9.6 9.0 Liver Function 11/27/19 Range/Units 05:22 Total Bilirubin 0.30 (0.1-1.2) mg/dL AST 12 (5-40) units/L ALT 14 (7-56) units/L Alkaline Phosphatase 113 (35-129) units/L Albumin 3.6 L (3.9-5) g/dL Urine 11/26/19 Range/Units 11:05 Urine Color Yellow (Yellow) Urine pH 5.0 (5.0-7.0) Ur Specific [place] 1.030 (1.003-1.030) Urine Protein <15 mg/dl (Negative) mg/dL Urine Glucose (UA) >=500 (Negative) mg/dL - Imaging and Cardiology CT scan - abdomen: report reviewed Imaging and Cardiology: CT abdomen IMPRESSION: 1. Abnormal loops of small bowel in the right side of the abdomen without abnormal dilatation. There is diffuse small bowel wall thickening in this region of the abdomen. The appearance is most likely related to enteritis, but clinical correlation is strongly recommended. 2. Hepatic steatosis. There is a benign-appearing hemangioma in the left lobe of the liver. Assessment and Plan Advance Directives: Yes (Full code) VTE prophylaxis?: Chemical Plan of care discussed with patient/family: Yes - Patient Problems (1) Type 2 diabetes mellitus with hyperosmolar nonketotic hyperglycemia Current Visit: No Status: Acute Plan to address problem: Patient is very noncompliant Hemoglobin A1c 16.7 Initial blood glucose was 415 went down to 258 and patient was symptomatically better IV insulin was not initiated Patient was not vomiting for the last 6 hours Downgrade the patient to medical floor with frequent Accu-Cheks every 4 hours and moderate dose sliding scale protocol Patient is unable to take Levemir and Humalog 4 times a day Patient switched to NovoLog Mix 70/30 15 units twice a day and counseled about it patient is agreeable. patient follows with Dr. Odalys Silva. No DKA Anion gap is 26 Minimal ketones in the urine (2) Metabolic acidosis Current Visit: Yes Status: Acute Plan to address problem: Mild Should correct with IV fluids and every 4 insulin-regular per moderate sliding scale Patient is asymptomatic now hence downgraded to medical floor (3) Hyponatremia Current Visit: Yes Status: Acute Plan to address problem: Should correct with correction of blood glucose (4) Arthritis Current Visit: Yes Status: Chronic Plan to address problem: Tylenol 650 q. 6 as needed (5) Urinary tract infection Current Visit: Yes Status: Acute Qualifiers: Urinary tract infection type: acute cystitis Plan to address problem: On IV Rocephin 1 g IV piggyback every 24 (6) DVT prophylaxis Current Visit: Yes Status: Acute Plan to address problem: On heparin and GI prophylaxis
--- NOTE | 2019-11-27 12:32 | Progress Note ---
Assessment and Plan - Patient Problems (1) Type 2 diabetes mellitus with hyperosmolar nonketotic hyperglycemia Current Visit: No Status: Acute Plan to address problem: Patient is very noncompliant Hemoglobin A1c 16.7 Initial blood glucose was 415 went down to 258 and patient was symptomatically better IV insulin was not initiated Patient was not vomiting for the last 6 hours Downgrade the patient to medical floor with frequent Accu-Cheks every 4 hours and moderate dose sliding scale protocol Patient is unable to take Levemir and Humalog 4 times a day Patient switched to NovoLog Mix 70/30 15 units twice a day and counseled about it patient is agreeable. patient follows with Dr. Odalys Silva. No DKA Anion gap is 26 Minimal ketones in the urine Patient not given any coverage for the last 16 hours because even though the order was put in for every 4 with moderate dose sliding scale was canceled for some unknown reason after couple of minutes. Blood glucose went up because of no coverage (2) Metabolic acidosis Current Visit: Yes Status: Acute Plan to address problem: Mild Should correct with IV fluids and every 4 insulin-regular per moderate sliding scale Patient is asymptomatic now hence downgraded to medical floor (3) Hyponatremia Current Visit: Yes Status: Acute Plan to address problem: Should correct with correction of blood glucose (4) Arthritis Current Visit: Yes Status: Chronic Plan to address problem: Tylenol 650 q. 6 as needed (5) Urinary tract infection Current Visit: Yes Status: Acute Qualifiers: Urinary tract infection type: acute cystitis Plan to address problem: On IV Rocephin 1 g IV piggyback every 24 (6) DVT prophylaxis Current Visit: Yes Status: Acute Plan to address problem: On heparin and GI prophylaxis (7) Discharge planning issues Current Visit: Yes Status: Acute Plan to address problem: Probable discharge tomorrow on NovoLog mix 15 units to 20 units twice a day depending on blood glucose levels today. Follow-up with Dr.P Silva Subjective Date of service: 11/27/19 Principal diagnosis: Hyperosmolar nonketotic state and diabetes Interval history: Patient symptomatically better. No vomiting for the last 24 hours. Objective - Constitutional Vitals: Vital Signs - 12hr 11/27/19 11/27/19 11/27/19 01:08 05:34 10:49 Temperature 97.8 F 98.5 F Pulse Rate 80 82 91 H Respiratory 20 16 18 Rate Blood Pressure 110/73 Blood Pressure 110/80 108/77 [Right] O2 Sat by Pulse 100 98 96 Oximetry General appearance: Present: no acute distress, well-nourished - EENT Eyes: PERRL, EOM intact ENT: hearing intact, clear oral mucosa Ears: bilateral: normal - Neck Details: 78 Neck: supple, normal ROM - Respiratory Respiratory effort: normal Respiratory: bilateral: CTA - Breasts Breasts: normal - Cardiovascular Rhythm: regular Heart Sounds: Present: S1 & S2. Absent: gallop, rub Extremities: pulses intact, No edema, normal color, Full ROM - Gastrointestinal General gastrointestinal: Present: soft, non-tender, non-distended, normal bowel sounds - Genitourinary Male genitourinary: normal - Integumentary Integumentary: clear, warm, dry - Musculoskeletal Musculoskeletal: 1, strength equal bilaterally - Neurologic Neurologic: moves all extremities - Psychiatric Psychiatric: memory intact, appropriate mood/affect, intact judgment & insight - Labs CBC & Chem 7: 11/27/19 05:22 11/27/19 05:22 Labs: Abnormal lab results 11/26/19 11/26/19 11/26/19 Range/Units 10:59 11:58 11:58 WBC 11.2 H (4.5-11.0) K/mm3 Hgb 15.8 H (11.8-15.2) gm/dl Hct 46.2 H (35.5-45.6) % MCV 96 H (84-94) fl MCH 33 H (28-32) pg Lymph % (Auto) 9.9 L (13.4-35.0) % [place] % (Auto) (0.0-7.3) % Lymph # 1.1 L (1.2-5.4) K/mm3 Seg Neutrophils % 83.6 H (40.0-70.0) % Seg Neutrophils # 9.3 H (1.8-7.7) K/mm3 VBG pH (7.320-7.420) Sodium 134 L (137-145) mmol/L Potassium 5.3 H (3.6-5.0) mmol/L Chloride 95.0 L (98-107) mmol/L Carbon Dioxide 18 L (22-30) mmol/L Glucose 415 H (75-100) mg/dL POC Glucose 342 H (70-105) Hemoglobin A1c (4-6) % Albumin (3.9-5) g/dL 11/26/19 11/26/19 11/26/19 Range/Units 11:58 17:21 20:17 WBC (4.5-11.0) K/mm3 Hgb (11.8-15.2) gm/dl Hct (35.5-45.6) % MCV (84-94) fl MCH (28-32) pg Lymph % (Auto) (13.4-35.0) % [place] % (Auto) (0.0-7.3) % Lymph # (1.2-5.4) K/mm3 Seg Neutrophils % (40.0-70.0) % Seg Neutrophils # (1.8-7.7) K/mm3 VBG pH 7.306 L (7.320-7.420) Sodium (137-145) mmol/L Potassium (3.6-5.0) mmol/L Chloride (98-107) mmol/L Carbon Dioxide (22-30) mmol/L Glucose (75-100) mg/dL POC Glucose 272 H 258 H (70-105) Hemoglobin A1c (4-6) % Albumin (3.9-5) g/dL 11/26/19 11/27/19 11/27/19 Range/Units 22:32 02:53 05:22 WBC (4.5-11.0) K/mm3 Hgb (11.8-15.2) gm/dl Hct (35.5-45.6) % MCV 97 H (84-94) fl MCH 33 H (28-32) pg Lymph % (Auto) (13.4-35.0) % [place] % (Auto) 7.7 H (0.0-7.3) % Lymph # (1.2-5.4) K/mm3 Seg Neutrophils % (40.0-70.0) % Seg Neutrophils # (1.8-7.7) K/mm3 VBG pH (7.320-7.420) Sodium (137-145) mmol/L Potassium (3.6-5.0) mmol/L Chloride (98-107) mmol/L Carbon Dioxide (22-30) mmol/L Glucose (75-100) mg/dL POC Glucose 262 H (70-105) Hemoglobin A1c 16.7 H (4-6) % Albumin (3.9-5) g/dL 11/27/19 11/27/19 11/27/19 Range/Units 05:22 09:23 11:39 WBC (4.5-11.0) K/mm3 Hgb (11.8-15.2) gm/dl Hct (35.5-45.6) % MCV (84-94) fl MCH (28-32) pg Lymph % (Auto) (13.4-35.0) % [place] % (Auto) (0.0-7.3) % Lymph # (1.2-5.4) K/mm3 Seg Neutrophils % (40.0-70.0) % Seg Neutrophils # (1.8-7.7) K/mm3 VBG pH (7.320-7.420) Sodium 135 L (137-145) mmol/L Potassium (3.6-5.0) mmol/L Chloride 95.5 L (98-107) mmol/L Carbon Dioxide 19 L (22-30) mmol/L Glucose 339 H (75-100) mg/dL POC Glucose 303 H 414 H (70-105) Hemoglobin A1c (4-6) % Albumin 3.6 L (3.9-5) g/dL
[2019-11-27] MEDS: NICOTINE 14 MG/24 HR PATCH TD SCH (13:38)
[2019-11-27] MEDS: cefTRIAXone/NS 1 GM/50 ML 1 GM/50 ML BAG IV SCH (15:28)
[2019-11-27] MEDS: SODIUM CHLORIDE 0.9% 1000 ML 1,000 ML IV SCH (22:41)
[2019-11-28] MEDS: INSULIN LISPRO 100 UNIT/ML SUB-Q SCH ×4 (04:21→14:42)
[2019-11-28 04:49] LABS: Basophils % (Auto) 0.7 % (0.0-1.8); Eosinophils # (Auto) 0.1 K/mm3 (0.0-0.4); Eosinophils % (Auto) 1.4 % (0.0-4.3); Hematocrit 37.8 % (35.5-45.6); Lymphocytes # (Auto) 2.1 K/mm3 (1.2-5.4); Mean Corpuscular HGB Conc 34 % (32-34); Mean Corpuscular Volume 95 fl (84-94); Monocytes # (Auto) 0.4 K/mm3 (0.0-0.8); Monocytes % (Auto) 7.3 % (0.0-7.3); Platelet Count 138 K/mm3 (140-440); Red Blood Count 3.98 M/mm3 (3.65-5.03); Red Cell Distribution Width 13.5 % (13.2-15.2)
[2019-11-28 05:17] LABS: Alanine Aminotransferase 16 units/L (7-56); Albumin 3.2 g/dL (3.9-5); BUN/Creatinine Ratio 18; Blood Urea Nitrogen 14 mg/dL (9-20); Calcium 8.4 mg/dL (8.4-10.2); Hemolysis Index 10
[2019-11-28] MEDS: INSULIN NPH/REGULAR 70/30 INJ SUB-Q SCH (08:28)
[2019-11-28] MEDS: HEPARIN 5,000 UNIT/1 ML VIAL SUB-Q SCH (09:51)
[2019-11-28] MEDS: NICOTINE 14 MG/24 HR PATCH TD SCH (09:51)
[2019-11-28] MEDS: cefTRIAXone/NS 1 GM/50 ML 1 GM/50 ML BAG IV SCH (09:52)
[2019-11-28] MEDS: SODIUM CHLORIDE 0.9% 1000 ML 1,000 ML IV SCH (09:53)
--- NOTE | 2019-11-28 13:36 | Discharge Summary ---
Providers - Providers Date of Admission: 11/26/19 22:01 Attending physician: GUDELIA LEA MD 11/26/19 22:05 Consult to Dietitian/Nutrition [CONS] Routine Physician Instructions: Reason For Exam: Uncontrolled diabetes Reason for Consult: Diet education Hospitalization Reason for admission: Diabetes ketoacidosis Condition: Stable Hospital course: 49-year-old -[place] male with history of insulin-dependent diabetes comes in for nausea and vomiting of 1 day duration. Patient is on Levemir and Humalog but not taking it for the last 1 week. Patient has been noncompliant. Patient takes his Levemir sometimes but not the Humalog. Patient blood glucose levels have been high in the 300-400 range. No diarrhea. Vomiting 3-4 times. But doing better now. (1) Type 2 diabetes mellitus with hyperosmolar nonketotic hyperglycemia Current Visit: No Status: Acute Plan to address problem: Patient is very noncompliant- 15 mins of counselling provided Hemoglobin A1c 16.7 Initial blood glucose was 415 went down to 258 and patient was symptomatically better IV insulin was not initiated Patient was not vomiting for the last 6 hours Downgrade the patient to medical floor with frequent Accu-Cheks every 4 hours and moderate dose sliding scale protocol Patient is unable to take Levemir and Humalog 4 times a day Patient switched to NovoLog Mix 70/30 15 units twice a day and counseled about it patient is agreeable. patient wass monitor overnight to get better control of Blood glucose patient follows with Dr. Odalys Silva. No DKA Anion gap is 26 Minimal ketones in the urine Patient not given any coverage for the last 16 hours because even though the order was put in for every 4 with moderate dose sliding scale was canceled for some unknown reason after couple of minutes. Blood glucose went up because of no coverage (2) Metabolic acidosis Current Visit: Yes Status: Acute Plan to address problem: (3) Hyponatremia (4) Arthritis (5) hypokalemia (6) urinary tract infection with no evidence of sepsis Treated with IV Rocephin 1 g IV piggyback every 24 changed to keflex on discharge No growth on cultures Disposition: TO HOME OR SELFCARE Time spent for discharge: 35 mins Core Measure Documentation - Palliative Care Palliative Care/ Comfort Measures: Not Applicable - Core Measures Any of the following diagnoses?: none Exam - Physical Exam Narrative exam: VITAL SIGNS: Reviewed. GENERAL: The patient appears normally developed, Vital signs as documented. HEAD: No signs of head trauma. EYES: Pupils are equal. Extraocular motions intact. EARS: Hearing grossly intact. MOUTH: Oropharynx is normal. NECK: No adenopathy, no JVD. CHEST: Chest with clear breath sounds bilaterally. No wheezes, rales, or rhonchi. CARDIAC: Regular rate and rhythm. S1 and S2, without murmurs, gallops, or rubs. VASCULAR: No Edema. Peripheral pulses normal and equal in all extremities. ABDOMEN: Soft, non tender and non distended. No rebound or guarding, and no masses palpated. Bowel Sounds normal. MUSCULOSKELETAL: Good range of motion of all major joints. Extremities without clubbing, cyanosis or edema. NEUROLOGIC EXAM: Alert and oriented x 3 No focal sensory or strength deficits. Speech normal. Follows commands. PSYCHIATRIC: Mood normal. SKIN: detial exam as documented in skin assessment - Constitutional Vitals: Temp Pulse Resp BP Pulse Ox 97.7 F 73 18 103/73 97 11/28/19 04:55 11/28/19 04:55 11/28/19 04:55 11/28/19 04:55 11/28/19 04:55 Plan Activity: advance as tolerated, fall precautions Diet: other (full liquid diet x 3 days then soft diet) Follow up with: RAGHAV NESS MD [Other] - 7 Days Prescriptions: metFORMIN [Glucophage] 500 mg PO BID #30 cephALEXin [Keflex] 500 mg PO Q12HR #4 cap Insulin NPH/Regular [NovoLIN 70/30] 20 unit SUB-Q BIDDIAB #100 units
[2019-11-28 14:42] VITALS: BP 109/70
== END 2019-11-28 17:25 | disposition home or self-care (01) | DRG 638 ==
LOC: ED 10:42 → OBSVTOIN 22:01 → 3A 22:01
PROVIDERS: ADMIT Internal Medicine; ATTEND Internal Medicine
DX: E11.00 Type 2 diabetes mellitus with hyperosmolarity without nonketotic hyperglycemic-hyperosmolar coma (NKHHC) (principal); E87.2 Acidosis; E87.1 Hypo-osmolality and hyponatremia; N30.00 Acute cystitis without hematuria; M19.90 Unspecified osteoarthritis, unspecified site; E87.6 Hypokalemia; E11.43 Type 2 diabetes mellitus with diabetic autonomic (poly)neuropathy; F17.200 Nicotine dependence, unspecified, uncomplicated; K31.84 Gastroparesis; Z79.4 Long term (current) use of insulin; Z91.14 Patient's other noncompliance with medication regimen; Z82.49 Family history of ischemic heart disease and other diseases of the circulatory system; Z89.021 Acquired absence of right finger(s)
CPT/HCPCS: 36415; 74177; 80048; 80053; 81001; 82805; 82962; 83036; 85025; 99406; G0378; J0696; J1200; J1644; J1815; J2405; J2765; J7030; Q9967

== ENCOUNTER 2020-03-18 21:39 | Emergency (ER) | payer SELFPAY ==
[2020-03-18 23:40] LABS: Bacteria,Urine 1+ /HPF (Negative); Bilirubin,Urine NEG (Negative); Blood,Urine NEG (Negative); Color,Urine Yellow (Yellow); Protein,Urine <15 mg/dL mg/dL (Negative); Urobilinogen,Urine < 2.0 mg/dL (<2.0)
--- NOTE | 2020-03-19 00:09 | Emergency Department Report ---
ED Abdominal Pain HPI - General Chief Complaint: Skin/Abscess/Foreign Body Stated Complaint: BLEEDING FROM [employer] PUI?: No Time Seen by Provider: 03/19/20 00:02 Source: patient Mode of arrival: Ambulatory Limitations: No Limitations - History of Present Illness Initial Comments: Patient is a 49-year-old male who presents emergency room with complaints of abdominal pain. Patient states having pain periumbilical. Patient states it started this morning. Patient states the pain is sharp. Patient states she is got blood and pus coming from his umbilicus. Patient states that he had a surgery 2 years ago for hernia repair. Patient states the pain is a 8 out of 10. Patient states that the pain is better with rest and worse with palpation and movement. Patient denies fever and chills. Patient states the pain is a sharp pain. Patient denies recent travel. Patient denies recent international travel. Patient denies exposure to the novel coronavirus. Patient denies sick contacts. Patient denies fever and chills. Patient denies cough. Patient denies diarrhea. Patient denies coming in contact with anybody with symptoms of the novel coronavirus. MD Complaint: abdominal pain -: Sudden Location: periumbilical Radiation: none Migration to: no migration Severity: severe Severity scale (0 -10): 8 Quality: stabbing Consistency: constant Improves With: rest Worsens With: other Associated Symptoms: denies: nausea, vomiting, diarrhea, fever, chills, constipation, dysuria, hematemesis, hematochezia, melena, hematuria, anorexia, syncope - Related Data Previous Rx's Medication Instructions Recorded Last Taken Type Insulin NPH/Regular [NovoLIN 70/30] 20 unit SUB-Q BIDDIAB #100 units 11/28/19 Unknown Rx cephALEXin [Keflex] 500 mg PO Q12HR #4 cap 11/28/19 Unknown Rx metFORMIN [Glucophage] 500 mg PO BID #30 11/28/19 Unknown Rx Sulfamethoxazole/Trimethoprim 1 each PO BID 14 Days #28 tablet 03/19/20 Unknown Rx [Bactrim DS TAB] Allergies Allergy/AdvReac Type Severity Reaction Status Date / Time pineapple Allergy Itching Verified 10/09/17 10:43 ED Review of Systems ROS: Stated complaint: BLEEDING FROM [employer] Other details as noted in HPI Constitutional: denies: chills, fever Eyes: denies: eye pain, eye discharge, vision change ENT: denies: ear pain, throat pain Respiratory: denies: cough, shortness of breath, wheezing Cardiovascular: denies: chest pain, palpitations Endocrine: no symptoms reported Gastrointestinal: as per HPI, abdominal pain. denies: nausea, diarrhea Genitourinary: denies: urgency, dysuria Musculoskeletal: denies: back pain, joint swelling, arthralgia Skin: as per HPI. 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 Umbilical Hernia repair - Social History Smoking Status: Current Every Day Smoker Substance Use Type: None - Medications Home Medications: Home Medications Medication Instructions Recorded Confirmed Last Taken Type Insulin NPH/Regular [NovoLIN 70/30] 20 unit SUB-Q BIDDIAB #100 units 11/28/19 Unknown Rx cephALEXin [Keflex] 500 mg PO Q12HR #4 cap 11/28/19 Unknown Rx metFORMIN [Glucophage] 500 mg PO BID #30 11/28/19 Unknown Rx Sulfamethoxazole/Trimethoprim 1 each PO BID 14 Days #28 tablet 03/19/20 Unknown Rx [Bactrim DS TAB] ED Physical Exam - General Limitations: No Limitations General appearance: alert, in no apparent distress - Head Head exam: Present: atraumatic, normocephalic - Eye Eye exam: Present: normal appearance - ENT ENT exam: Present: mucous membranes moist - Neck Neck exam: Present: normal inspection - Respiratory Respiratory exam: Present: normal lung sounds bilaterally. Absent: respiratory distress - Cardiovascular Cardiovascular Exam: Present: regular rate, normal rhythm. Absent: systolic murmur, diastolic murmur, rubs, gallop - GI/Abdominal GI/Abdominal exam: Present: soft, tenderness (Periumbilical umbilical tenderness to palpation.), normal bowel sounds - Rectal Rectal exam: Present: deferred - Extremities Exam Extremities exam: Present: normal inspection - Back Exam Back exam: Present: normal inspection - Neurological Exam Neurological exam: Present: alert, oriented X3 - Psychiatric Psychiatric exam: Present: normal affect, normal mood - Skin Skin exam: Present: warm, dry, normal color, erythema (Noted around umbilicus), other (An open area noted on EGD umbilicus and has a purulent discharge.). Absent: rash ED Course Vital Signs 03/18/20 21:43 Temperature 98.2 F Pulse Rate 102 H Respiratory 18 Rate Blood Pressure 147/93 O2 Sat by Pulse 99 Oximetry - Reevaluation(s) Reevaluation #1: I discussed all results and clinical findings with patient. I discussed plan of care with patient. Patient agrees with plan of care. Patient is stable for discharge. Patient will be discharged home. Patient given discharge instructions. Patient voiced understanding of discharge instructions. 03/19/20 01:37 ED Medical Decision Making - Lab Data Result diagrams: 03/18/20 23:43 03/18/20 23:43 - Medical Decision Making Patient is a 49-year-old male that presents emergency room with complaints of discharge and bleeding from his navel as well as abdominal pain and abdominal tenderness. Patient on exam found to have periumbilical abdominal pain. Due to the fact patient had a surgical procedure in his umbilicus a CT of the abdomen was done. CT abdomen shows no acute findings. Patient will be treated for cellulitis and a draining abscess. Patient will be given antibiotics. Patient had labs done which were unremarkable except for a UTI. Patient will be given antibiotics for that as well. Patient is stable for discharge. Patient discharged home. - Differential Diagnosis Cellulitis, abscess, abdominal pain Critical care attestation.: If time is entered above; I have spent that time in minutes in the direct care of this critically ill patient, excluding procedure time. ED Disposition Clinical Impression: Cellulitis and abscess of trunk UTI (urinary tract infection) Qualifiers: Urinary tract infection type: acute cystitis Hematuria presence: with hematuria Qualified Code(s): N30.01 - Acute cystitis with hematuria Abdominal pain Qualifiers: Abdominal location: periumbilical Qualified Code(s): R10.33 - Periumbilical pain Disposition: - TO HOME OR SELFCARE Is pt being admited?: No Does the pt Need Aspirin: No Condition: Stable Instructions: Urinary Tract Infection in Men (ED), Cellulitis (ED) Additional Instructions: Patient to follow-up with primary care in 2 to 3 days. Patient to follow-up with general surgery in 2 to 3 days. Patient to rest. Patient to increase water. Patient to take Tylenol or ibuprofen as needed for pain. Patient to take meds as directed. Patient to return to the ER if condition worsens, changes or new symptoms arise. Prescriptions: Sulfamethoxazole/Trimethoprim [Bactrim DS TAB] 1 each PO BID 14 Days #28 tablet Referrals: PRIMARY CARE, [Primary Care Provider] - 3-5 Days Time of Disposition: 01:40
[2020-03-19 00:23] LABS: Basophils % (Auto) 0.4 % (0.0-1.8); Eosinophils # (Auto) 0.1 K/mm3 (0.0-0.4); Eosinophils % (Auto) 0.8 % (0.0-4.3); Hematocrit 42.2 % (35.5-45.6); Hemoglobin 13.8 gm/dl (11.8-15.2); Lymphocytes # (Auto) 2.1 K/mm3 (1.2-5.4); Lymphocytes % (Auto) 24.3 % (13.4-35.0); Mean Corpuscular HGB Conc 33 % (32-34); Mean Corpuscular Volume 95 fl (84-94); Monocytes # (Auto) 0.6 K/mm3 (0.0-0.8); Monocytes % (Auto) 7.5 % (0.0-7.3); Platelet Count 203 K/mm3 (140-440); Red Blood Count 4.47 M/mm3 (3.65-5.03); Red Cell Distribution Width 13.1 % (13.2-15.2)
[2020-03-19 00:31] LABS: Alanine Aminotransferase 18 units/L (7-56); Albumin 3.9 g/dL (3.9-5); BUN/Creatinine Ratio 22; Blood Urea Nitrogen 22 mg/dL (9-20); Calcium 9.3 mg/dL (8.4-10.2); Hemolysis Index 17
[2020-03-19 01:52] VITALS: BP 134/78
== END 2020-03-19 01:54 | disposition home or self-care (01) ==
LOC: ED 21:39
DX: N39.0 Urinary tract infection, site not specified (principal); L03.316 Cellulitis of umbilicus
CPT/HCPCS: 36415; 74177; 80053; 81001; 82962; 85025; 87086; 99284; Q9967